=== PATIENT | female | born 1960 | race Caucasian/White ===

== ENCOUNTER 2021-12-08 15:11 | Observation (INO) ==
[2021-12-08 15:41] LABS: Basophils # 0.1 10*3/uL (0.0-0.2); Basophils % 0.8 % (0.0-0.8); Eosinophils # 0.1 10*3/uL (0.0-0.87); Eosinophils % 1.3 % (0.00-10.9); Hematocrit 37.6 VOL% (35.7-47.0); Hemoglobin 12.2 GM/DL (12.0-16.0); Immature Granulocytes % 0.4 %; Immature Granulocytes Absolute 0.05 #; Lymphocytes # 2.3 10*3/uL (1.4-4.0); Lymphocytes % 20.6 % (21.3-54.2); Mean Corpuscular HGB Conc 32.4 GM/DL (32-36); Mean Corpuscular Volume 90.4 FL (87-102); Mean Platelet Volume 10.8 FL (9.6-12.0); Monocytes # 0.6 10*3/uL (0.11-0.8); Monocytes % 5.2 % (1.7-12.7); Neutrophils % 71.7 % (38.7-73.9); Platelet Count 282 T/CUMM (130-400); Red Blood Count 4.16 MC/CUMM (3.8-5.5); Red Cell Distribution Width 15.9 % (9.3-17.3); White Blood Count 11.1 T/CUMM (4-12)
[2021-12-08 16:11] LABS: Alanine Aminotransferase 31 U/L (13-56); Albumin 4.1 G/DL (3.4-5.0); Alkaline Phosphatase 129 U/L (45-117); Aspartate Amino Transferase 26 U/L (0-37); Bilirubin,Total < 0.39 MG/DL (0.20-1.00); Blood Urea Nitrogen 13 MG/DL (7-18); Calcium 9.2 MG/DL (8.5-10.1); Carbon Dioxide 23 MMOL/L (21-32); Chloride 111 MMOL/L (98-107); Glucose 129 MG/DL (74-106); Osmolality,Calculated 280.4 MOS/KG (273-304); Potassium 3.8 MMOL/L (3.5-5.1); Sodium 140 MMOL/L (136-145); Total Protein 7.2 G/DL (6.4-8.2)
[2021-12-08] MEDS ORDERED: methylPREDNISolone SOD SUC 125 MG/2 ML VIAL IV STA (16:35)
[2021-12-08] MEDS ORDERED: ALBUTEROL/IPRATROPIUM 3 ML NEB RESP TX STA (16:35)
[2021-12-08] MEDS ORDERED: KETOROLAC 30 MG/1 ML VIAL IV STA ×2 (16:40→21:44)
[2021-12-08] MEDS ORDERED: ALBUTEROL 2.5 MG/3 ML NEB RESP TX STA (20:24)
[2021-12-08] MEDS ORDERED: guaiFENesin/CODEINE 5 ML LIQUID PO PRN (21:44)
[2021-12-08] MEDS ORDERED: PANTOPRAZOLE 40 MG VIAL IV STA (22:04)
[2021-12-08] MEDS: MORPHINE 2 MG/1 ML SYRINGE IV PRN (22:57)
[2021-12-08] MEDS ORDERED: GLUCAGON 1 MG VIAL IM PRN (23:25)
[2021-12-08] MEDS: ALBUTEROL 2.5 MG/3 ML NEB RESP TX SCH (23:30)
[2021-12-08] MEDS ORDERED: NON-FORMULARY MEDICATION (Albuterol Sulfate [Ventolin Hfa] 90 mcg/actuation HFA aerosol in INH PRN (23:39)
[2021-12-08] MEDS ORDERED: DEXTROSE 10% 250 ML BAG IV PRN (23:48)
[2021-12-09] MEDS: ENOXAPARIN 40 MG/0.4 ML SYRINGE SUBCUT SCH ×2 (00:33→08:38)
[2021-12-09] MEDS: SODIUM CHLORIDE 0.45% 1,000 ML IV SCH ×2 (01:01→13:57)
[2021-12-09] MEDS: methylPREDNISolone SOD SUC 125 MG/2 ML VIAL IV SCH ×4 (01:02→17:25)
[2021-12-09 05:48] LABS: Basophils % 0.1 % (0.0-0.8); Hematocrit 33.6 VOL% (35.7-47.0); Hemoglobin 10.7 GM/DL (12.0-16.0); Immature Granulocytes % 0.7 %; Immature Granulocytes Absolute 0.06 #; Lymphocytes # 0.6 10*3/uL (1.4-4.0); Mean Corpuscular HGB Conc 31.8 GM/DL (32-36); Mean Corpuscular Volume 91.3 FL (87-102); Mean Platelet Volume 10.8 FL (9.6-12.0); Monocytes # 0.1 10*3/uL (0.11-0.8); Neutrophils % 91.2 % (38.7-73.9); Platelet Count 252 T/CUMM (130-400); Red Blood Count 3.68 MC/CUMM (3.8-5.5); Red Cell Distribution Width 16.2 % (9.3-17.3); White Blood Count 8.8 T/CUMM (4-12)
[2021-12-09] MEDS: LEVOTHYROXINE 100 MCG TABLET PO SCH (06:07)
[2021-12-09 06:20] LABS: Calcium 8.6 MG/DL (8.5-10.1); Osmolality,Calculated 287.4 MOS/KG (273-304); Thyroid Stimulating Hormone 2.01 uIU/ml (0.358-3.74)
[2021-12-09 06:28] LABS: Band Neutrophils 5 % (0-10); Lymphocytes 6 % (20-55); Platelet Estimate Normal; Total Cells Counted 100
[2021-12-09 06:29] LABS: Anisocytosis 1+; Macrocytosis Slight
[2021-12-09] MEDS: ALBUTEROL 2.5 MG/3 ML NEB RESP TX SCH ×2 (07:30→10:11)
[2021-12-09] MEDS: lisinopriL 20 MG TABLET PO SCH (08:37)
[2021-12-09] MEDS: MONTELUKAST 10 MG TABLET PO SCH (08:37)
[2021-12-09] MEDS: ASPIRIN EC 81 MG TABLET PO SCH (08:37)
[2021-12-09] MEDS: GABAPENTIN 300 MG CAPSULE PO SCH ×4 (08:37→21:19)
[2021-12-09] MEDS: FLUTICASONE 50 MCG NASAL SPRAY 16 GM BOTTLE BOTH NARES SCH (08:38)
[2021-12-09] MEDS: clonazePAM 0.5 MG TABLET PO SCH ×4 (08:41→21:19)
[2021-12-09] MEDS ORDERED: amLODIPine 2.5 MG TABLET PO SCH ×2 (09:00→14:00)
[2021-12-09] MEDS ORDERED: PANTOPRAZOLE 40 MG VIAL IV SCH (09:00)
[2021-12-09] MEDS ORDERED: FAMOTIDINE 20 MG TABLET PO SCH ×2 (09:00→17:00)
[2021-12-09] MEDS ORDERED: DOCUSATE SODIUM 100 MG CAPSULE PO SCH (09:00)
[2021-12-09] MEDS ORDERED: DEXTROSE 10% 250 ML BAG IV PRN (09:06)
[2021-12-09] MEDS: guaiFENesin/DM ER 600-30 MG TABLET PO SCH ×2 (10:04→21:19)
[2021-12-09] MEDS: MORPHINE 2 MG/1 ML SYRINGE IV PRN ×2 (10:09→17:49)
[2021-12-09] MEDS: ALBUTEROL/IPRATROPIUM 3 ML NEB RESP TX SCH ×4 (11:07→23:05)
[2021-12-09] MEDS: INSULIN LISPRO 100 UNIT/ML SUBCUT SCH ×3 (12:30→21:18)
[2021-12-09] MEDS: ACETAMINOPHEN 325 MG TABLET PO PRN (13:56)
[2021-12-09] MEDS: ONDANSETRON 4 MG/2 ML VIAL IV PRN (14:06)
[2021-12-09] MEDS: DORNASE ALFA 2.5 MG/2.5 ML VIAL RESP TX SCH ×2 (15:09→19:23)
[2021-12-09] MEDS ORDERED: KETOROLAC 15 MG/1 ML VIAL IM ONE (17:33)
[2021-12-09] MEDS ORDERED: KETOROLAC 15 MG/1 ML VIAL IV ONE (17:35)
[2021-12-09] MEDS: SENNA 8.6 MG TABLET PO SCH (21:19)
[2021-12-10] MEDS: methylPREDNISolone SOD SUC 125 MG/2 ML VIAL IV SCH ×2 (00:42→06:11)
[2021-12-10] MEDS: ONDANSETRON 4 MG/2 ML VIAL IV PRN ×2 (00:43→08:49)
[2021-12-10] MEDS: ALBUTEROL/IPRATROPIUM 3 ML NEB RESP TX SCH ×3 (04:08→10:50)
[2021-12-10 05:37] LABS: Risk Ratio 3.6; VLDL Cholesterol 21.8 MG/DL
[2021-12-10] MEDS: DORNASE ALFA 2.5 MG/2.5 ML VIAL RESP TX SCH (06:52)
[2021-12-10] MEDS: LEVOTHYROXINE 100 MCG TABLET PO SCH (07:09)
[2021-12-10 07:38] LABS: Basophils % 0.1 % (0.0-0.8); Hematocrit 32.7 VOL% (35.7-47.0); Hemoglobin 10.4 GM/DL (12.0-16.0); Immature Granulocytes % 0.9 %; Immature Granulocytes Absolute 0.14 #; Lymphocytes # 0.9 10*3/uL (1.4-4.0); Lymphocytes % 6.1 % (21.3-54.2); Mean Corpuscular HGB Conc 31.8 GM/DL (32-36); Mean Corpuscular Volume 92.6 FL (87-102); Mean Platelet Volume 11.5 FL (9.6-12.0); Monocytes # 0.3 10*3/uL (0.11-0.8); Monocytes % 1.9 % (1.7-12.7); Platelet Count 254 T/CUMM (130-400); Red Blood Count 3.53 MC/CUMM (3.8-5.5); Red Cell Distribution Width 16.6 % (9.3-17.3); White Blood Count 15.3 T/CUMM (4-12)
[2021-12-10 07:49] LABS: Potassium 4.6 MMOL/L (3.5-5.1)
[2021-12-10] MEDS: INSULIN LISPRO 100 UNIT/ML SUBCUT SCH (08:04)
[2021-12-10 08:20] VITALS: BP 129/57
[2021-12-10 08:26] LABS: Anisocytosis 1+; Band Neutrophils 3 % (0-10); Lymphocytes 4 % (20-55); Platelet Estimate Normal; Total Cells Counted 100
[2021-12-10] MEDS: ASPIRIN EC 81 MG TABLET PO SCH (08:37)
[2021-12-10] MEDS: MONTELUKAST 10 MG TABLET PO SCH ×2 (08:37→08:43)
[2021-12-10] MEDS: guaiFENesin/DM ER 600-30 MG TABLET PO SCH (08:37)
[2021-12-10] MEDS: clonazePAM 0.5 MG TABLET PO SCH (08:38)
[2021-12-10] MEDS: ENOXAPARIN 40 MG/0.4 ML SYRINGE SUBCUT SCH (08:39)
[2021-12-10] MEDS: SENNA 8.6 MG TABLET PO SCH (08:42)
[2021-12-10] MEDS: lisinopriL 20 MG TABLET PO SCH (08:42)
[2021-12-10] MEDS: FLUTICASONE 50 MCG NASAL SPRAY 16 GM BOTTLE BOTH NARES SCH (08:52)
[2021-12-10] MEDS: ACETAMINOPHEN 325 MG TABLET PO PRN (08:52)
[2021-12-10] MEDS ORDERED: LEVOTHYROXINE 100 MCG TABLET PO SCH (09:00)
[2021-12-10] MEDS ORDERED: GABAPENTIN 600 MG TABLET PO SCH ×2 (09:00→21:00)
[2021-12-10] MEDS ORDERED: LEVOFLOXACIN 750 MG TABLET PO ONE (09:14)
[2021-12-10] MEDS: MORPHINE 2 MG/1 ML SYRINGE IV PRN (10:09)
[2021-12-10] MEDS ORDERED: GABAPENTIN 300 MG CAPSULE PO SCH (12:00)
[2021-12-10] MEDS ORDERED: ATORVASTATIN 20 MG TABLET PO SCH (21:00)
== END 2021-12-10 11:33 | disposition home or self-care (01) ==
LOC: N.ED 15:11 → N.EDINP 21:43 → INTOOBSV 21:43 → N.EDINP 12-09 00:02 → N.TELES 12-09 00:29
PROVIDERS: ADMIT Internal Medicine; ATTEND Internal Medicine

== ENCOUNTER 2022-01-09 20:53 | Inpatient (IN) ==
[2022-01-09 21:22] LABS: Basophils # 0.1 10*3/uL (0.0-0.2); Eosinophils # 0.3 10*3/uL (0.0-0.87); Eosinophils % 3.1 % (0.00-10.9); Hematocrit 34.3 VOL% (35.7-47.0); Hemoglobin 10.9 GM/DL (12.0-16.0); Immature Granulocytes % 0.4 %; Immature Granulocytes Absolute 0.04 #; Lymphocytes # 2.5 10*3/uL (1.4-4.0); Lymphocytes % 26.4 % (21.3-54.2); Mean Corpuscular HGB Conc 31.8 GM/DL (32-36); Mean Corpuscular Volume 93.2 FL (87-102); Mean Platelet Volume 10.5 FL (9.6-12.0); Monocytes # 0.6 10*3/uL (0.11-0.8); Monocytes % 5.9 % (1.7-12.7); Neutrophils % 63.2 % (38.7-73.9); Platelet Count 241 T/CUMM (130-400); Red Blood Count 3.68 MC/CUMM (3.8-5.5); Red Cell Distribution Width 16.9 % (9.3-17.3); White Blood Count 9.6 T/CUMM (4-12)
[2022-01-09 21:33] LABS: INR 0.9; Partial Thromboplastin Time 25.8 SECS (23.7-32.9)
[2022-01-09] MEDS ORDERED: MORPHINE 2 MG/1 ML SYRINGE IV STA (21:38)
[2022-01-09] MEDS ORDERED: methylPREDNISolone SOD SUC 125 MG/2 ML VIAL IV STA (21:38)
[2022-01-09] MEDS ORDERED: ALBUTEROL/IPRATROPIUM 3 ML NEB RESP TX STA (21:38)
[2022-01-09] MEDS ORDERED: ONDANSETRON 4 MG/2 ML VIAL IV ONE (21:38)
[2022-01-09 21:48] LABS: Alanine Aminotransferase 23 U/L (13-56); Albumin 3.7 G/DL (3.4-5.0); Alkaline Phosphatase 116 U/L (45-117); Aspartate Amino Transferase 26 U/L (0-37); Bilirubin,Total < 0.39 MG/DL (0.20-1.00); Blood Urea Nitrogen 11 MG/DL (7-18); Calcium 8.9 MG/DL (8.5-10.1); Carbon Dioxide 25 MMOL/L (21-32); Chloride 111 MMOL/L (98-107); Glucose 122 MG/DL (74-106); Osmolality,Calculated 280.3 MOS/KG (273-304); Potassium 3.6 MMOL/L (3.5-5.1); Sodium 141 MMOL/L (136-145); Total Protein 6.4 G/DL (6.4-8.2)
[2022-01-09] MEDS ORDERED: NITROGLYCERIN 2% OINT 1 INCH/GM PACK TOP ONE (23:30)
[2022-01-09] MEDS ORDERED: NITROGLYCERIN 2% OINT 1 INCH/GM PACK TOP STA (23:31)
[2022-01-10] MEDS ORDERED: KETOROLAC 30 MG/1 ML VIAL IV STA (00:12)
[2022-01-10] MEDS ORDERED: KETOROLAC 30 MG/1 ML VIAL ONE (00:12)
[2022-01-10] MEDS ORDERED: ACETAMINOPHEN 325 MG TABLET PO PRN (00:15)
[2022-01-10] MEDS ORDERED: diphenhydrAMINE CAP 25 MG CAPSULE PO PRN (00:15)
[2022-01-10] MEDS ORDERED: guaiFENesin/DM ER 600-30 MG TABLET PO PRN (00:15)
[2022-01-10] MEDS ORDERED: GLUCAGON 1 MG VIAL IM PRN (00:15)
[2022-01-10] MEDS ORDERED: ZALEPLON 5 MG CAPSULE PO PRN (00:15)
[2022-01-10] MEDS ORDERED: DEXTROSE 10% 250 ML BAG IV PRN (00:31)
[2022-01-10] MEDS: ALBUTEROL/IPRATROPIUM 3 ML NEB RESP TX SCH ×4 (01:15→19:24)
[2022-01-10] MEDS: NICOTINE 21 MG/24 HR PATCH TRANSDERM PRN (01:35)
[2022-01-10] MEDS: methylPREDNISolone SOD SUC 125 MG/2 ML VIAL IV SCH ×4 (04:20→22:10)
[2022-01-10 05:57] LABS: Basophils % 0.6 % (0.0-0.8); Eosinophils % 0.2 % (0.00-10.9); Hematocrit 33.7 VOL% (35.7-47.0); Hemoglobin 10.7 GM/DL (12.0-16.0); Immature Granulocytes % 0.3 %; Immature Granulocytes Absolute 0.02 #; Lymphocytes # 0.5 10*3/uL (1.4-4.0); Lymphocytes % 7.2 % (21.3-54.2); Mean Corpuscular HGB Conc 31.8 GM/DL (32-36); Mean Corpuscular Volume 93.6 FL (87-102); Monocytes # 0.1 10*3/uL (0.11-0.8); Monocytes % 0.8 % (1.7-12.7); Neutrophils % 90.9 % (38.7-73.9); Platelet Count 228 T/CUMM (130-400); Red Cell Distribution Width 16.9 % (9.3-17.3); White Blood Count 6.7 T/CUMM (4-12)
[2022-01-10 06:17] LABS: Calcium 9.4 MG/DL (8.5-10.1); Osmolality,Calculated 283.4 MOS/KG (273-304); Potassium 4.6 MMOL/L (3.5-5.1)
[2022-01-10 06:24] LABS: Eosinophils 2 % (0-10); Lymphocytes 9 % (20-55); Platelet Estimate Adequate; Total Cells Counted 100
[2022-01-10] MEDS: ARFORMOTEROL 15 MCG/2 ML NEB RESP TX SCH ×2 (07:05→19:24)
[2022-01-10] MEDS: BUDESONIDE 0.5 MG/2 ML NEB RESP TX SCH ×2 (07:05→19:24)
[2022-01-10] MEDS: MONTELUKAST 10 MG TABLET PO SCH (09:12)
[2022-01-10] MEDS: BISACODYL 5 MG TABLET PO SCH (09:12)
[2022-01-10] MEDS: ASPIRIN EC 81 MG TABLET PO SCH (09:13)
[2022-01-10] MEDS: PANTOPRAZOLE 40 MG TABLET PO SCH (09:13)
[2022-01-10] MEDS ORDERED: clonazePAM 0.5 MG TABLET PO PRN (09:15)
[2022-01-10] MEDS: lisinopriL 20 MG TABLET PO SCH (09:25)
[2022-01-10] MEDS: amLODIPine 2.5 MG TABLET PO SCH (09:25)
[2022-01-10] MEDS: FUROSEMIDE 20 MG TABLET PO SCH (09:25)
[2022-01-10] MEDS: ONDANSETRON 4 MG/2 ML VIAL IV PRN (10:00)
[2022-01-10] MEDS: GABAPENTIN 300 MG CAPSULE PO SCH (11:45)
[2022-01-10] MEDS: LEVOTHYROXINE 100 MCG TABLET PO SCH (11:45)
[2022-01-10] MEDS: (Fluticasone-Umeclidin-Vilanter [Trelegy Ellipta] 100-62.5-25 mcg INH SCH (12:43)
[2022-01-10] MEDS: ATORVASTATIN 20 MG TABLET PO SCH (20:30)
[2022-01-10] MEDS: GABAPENTIN 600 MG TABLET PO SCH (20:30)
[2022-01-10] MEDS: MORPHINE 2 MG/1 ML SYRINGE IV PRN (20:31)
[2022-01-11] MEDS: ALBUTEROL/IPRATROPIUM 3 ML NEB RESP TX SCH ×5 (00:18→19:00)
[2022-01-11] MEDS: NICOTINE 21 MG/24 HR PATCH TRANSDERM PRN (01:12)
[2022-01-11] MEDS: MORPHINE 2 MG/1 ML SYRINGE IV PRN ×4 (01:13→22:49)
[2022-01-11] MEDS: methylPREDNISolone SOD SUC 125 MG/2 ML VIAL IV SCH ×3 (04:53→21:26)
[2022-01-11] MEDS: LEVOTHYROXINE 100 MCG TABLET PO SCH (05:52)
[2022-01-11 05:54] LABS: Basophils % 0.1 % (0.0-0.8); Hematocrit 33.3 VOL% (35.7-47.0); Hemoglobin 10.5 GM/DL (12.0-16.0); Immature Granulocytes Absolute 0.18 #; Lymphocytes # 0.8 10*3/uL (1.4-4.0); Lymphocytes % 4.4 % (21.3-54.2); Mean Corpuscular HGB Conc 31.5 GM/DL (32-36); Mean Corpuscular Volume 93.8 FL (87-102); Mean Platelet Volume 11.2 FL (9.6-12.0); Monocytes # 0.3 10*3/uL (0.11-0.8); Monocytes % 1.6 % (1.7-12.7); Neutrophils % 92.9 % (38.7-73.9); Platelet Count 240 T/CUMM (130-400); Red Blood Count 3.55 MC/CUMM (3.8-5.5); Red Cell Distribution Width 17.2 % (9.3-17.3); White Blood Count 18.4 T/CUMM (4-12)
[2022-01-11 06:06] LABS: Calcium 8.8 MG/DL (8.5-10.1); Osmolality,Calculated 286.3 MOS/KG (273-304); Potassium 4.3 MMOL/L (3.5-5.1)
[2022-01-11 06:21] LABS: Band Neutrophils 3 % (0-10); Lymphocytes 6 % (20-55); Polychromasia Slight; Total Cells Counted 100
[2022-01-11 06:22] LABS: Macrocytosis 1+; Platelet Estimate Normal
[2022-01-11] MEDS: BUDESONIDE 0.5 MG/2 ML NEB RESP TX SCH ×2 (07:19→19:00)
[2022-01-11] MEDS: ARFORMOTEROL 15 MCG/2 ML NEB RESP TX SCH ×2 (07:19→19:00)
[2022-01-11] MEDS: lisinopriL 20 MG TABLET PO SCH (09:40)
[2022-01-11] MEDS: amLODIPine 2.5 MG TABLET PO SCH (09:40)
[2022-01-11] MEDS: ASPIRIN EC 81 MG TABLET PO SCH (09:42)
[2022-01-11] MEDS: MONTELUKAST 10 MG TABLET PO SCH ×2 (09:42→21:27)
[2022-01-11] MEDS: BISACODYL 5 MG TABLET PO SCH (09:43)
[2022-01-11] MEDS: PANTOPRAZOLE 40 MG TABLET PO SCH (09:43)
[2022-01-11] MEDS: (Fluticasone-Umeclidin-Vilanter [Trelegy Ellipta] 100-62.5-25 mcg INH SCH (09:53)
[2022-01-11] MEDS: ALBUTEROL 2.5 MG/3 ML NEB RESP TX PRN ×2 (10:53→15:35)
[2022-01-11] MEDS ORDERED: AMINOPHYLLINE 250 MG in SODIUM CHLORIDE 0.9% 100 ML IV ONE (11:00)
[2022-01-11] MEDS: LEVOFLOXACIN INJ 500 MG/100 ML PREMIX IV SCH (11:18)
[2022-01-11] MEDS: GABAPENTIN 300 MG CAPSULE PO SCH (11:54)
[2022-01-11] MEDS: ALBUTEROL 2 MG TABLET PO SCH ×2 (14:54→21:26)
[2022-01-11] MEDS: clonazePAM 0.5 MG TABLET PO SCH ×2 (14:54→21:27)
[2022-01-11] MEDS ORDERED: AMINOPHYLLINE 500 MG in SODIUM CHLORIDE 0.9% 480 ML IV SCH (15:00)
[2022-01-11] MEDS: ONDANSETRON 4 MG/2 ML VIAL IV PRN (15:22)
[2022-01-11] MEDS ORDERED: VITAMIN D2 1.25 MG PO ONE (21:00)
[2022-01-11] MEDS: GABAPENTIN 600 MG TABLET PO SCH (21:27)
[2022-01-11] MEDS: ATORVASTATIN 20 MG TABLET PO SCH (21:28)
[2022-01-11] MEDS: SENNA 8.6 MG TABLET PO SCH (23:59)
[2022-01-12 05:42] LABS: Basophils % 0.1 % (0.0-0.8); Hematocrit 32.4 VOL% (35.7-47.0); Hemoglobin 10.1 GM/DL (12.0-16.0); Immature Granulocytes % 1.1 %; Immature Granulocytes Absolute 0.19 #; Lymphocytes # 0.6 10*3/uL (1.4-4.0); Lymphocytes % 3.2 % (21.3-54.2); Mean Corpuscular HGB Conc 31.2 GM/DL (32-36); Mean Corpuscular Volume 95.6 FL (87-102); Mean Platelet Volume 10.9 FL (9.6-12.0); Monocytes # 0.3 10*3/uL (0.11-0.8); Monocytes % 1.7 % (1.7-12.7); Neutrophils % 93.9 % (38.7-73.9); Platelet Count 260 T/CUMM (130-400); Red Blood Count 3.39 MC/CUMM (3.8-5.5); White Blood Count 17.4 T/CUMM (4-12)
[2022-01-12] MEDS: methylPREDNISolone SOD SUC 125 MG/2 ML VIAL IV SCH ×3 (05:50→21:42)
[2022-01-12] MEDS: LEVOTHYROXINE 100 MCG TABLET PO SCH (05:50)
[2022-01-12] MEDS: ALBUTEROL 2 MG TABLET PO SCH ×3 (05:50→22:30)
[2022-01-12 06:00] LABS: Osmolality,Calculated 285.3 MOS/KG (273-304)
[2022-01-12 06:06] LABS: Lymphocytes 5 % (20-55); Platelet Estimate Adequate; Total Cells Counted 100
[2022-01-12] MEDS: NICOTINE 21 MG/24 HR PATCH TRANSDERM PRN (06:12)
[2022-01-12] MEDS: MORPHINE 2 MG/1 ML SYRINGE IV PRN ×3 (06:13→22:30)
[2022-01-12] MEDS: BUDESONIDE 0.5 MG/2 ML NEB RESP TX SCH ×2 (07:25→19:29)
[2022-01-12] MEDS: ALBUTEROL/IPRATROPIUM 3 ML NEB RESP TX SCH ×4 (07:25→19:21)
[2022-01-12] MEDS: ARFORMOTEROL 15 MCG/2 ML NEB RESP TX SCH ×2 (07:25→19:29)
[2022-01-12] MEDS ORDERED: SENNA 8.6 MG TABLET PO SCH (09:00)
[2022-01-12] MEDS ORDERED: SODIUM CHLORIDE 0.9% 1,000 ML IV SCH (09:00)
[2022-01-12] MEDS: ONDANSETRON 4 MG/2 ML VIAL IV PRN ×2 (09:43→22:30)
[2022-01-12] MEDS: lisinopriL 20 MG TABLET PO SCH (09:44)
[2022-01-12] MEDS: FUROSEMIDE 20 MG TABLET PO SCH (09:45)
[2022-01-12] MEDS: amLODIPine 2.5 MG TABLET PO SCH (09:45)
[2022-01-12] MEDS: clonazePAM 0.5 MG TABLET PO SCH ×3 (09:46→21:43)
[2022-01-12] MEDS: PANTOPRAZOLE 40 MG TABLET PO SCH (09:46)
[2022-01-12] MEDS: (Fluticasone-Umeclidin-Vilanter [Trelegy Ellipta] 100-62.5-25 mcg INH SCH (09:47)
[2022-01-12] MEDS: ASPIRIN EC 81 MG TABLET PO SCH (09:52)
[2022-01-12] MEDS: MONTELUKAST 10 MG TABLET PO SCH ×2 (09:53→21:43)
[2022-01-12] MEDS: LEVOFLOXACIN INJ 500 MG/100 ML PREMIX IV SCH (10:11)
[2022-01-12] MEDS ORDERED: HEPARIN/NACL 0.9% 2 UNITS/ML 3,000 UNIT/1,500 ML BAG IV ONE (11:22)
[2022-01-12] MEDS: GABAPENTIN 300 MG CAPSULE PO SCH (12:40)
[2022-01-12] MEDS ORDERED: ALBUTEROL 2 MG TABLET PO SCH (14:00)
[2022-01-12] MEDS ORDERED: MIDAZOLAM 2 MG/2 ML VIAL ONE ×2 (15:09→15:23)
[2022-01-12] MEDS ORDERED: fentaNYL 100 MCG/2 ML VIAL ONE (15:09)
[2022-01-12] MEDS: ATORVASTATIN 20 MG TABLET PO SCH (21:43)
[2022-01-12] MEDS: GABAPENTIN 600 MG TABLET PO SCH (21:43)
[2022-01-12] MEDS: SENNA 8.6 MG TABLET PO SCH (21:44)
[2022-01-12] MEDS: ALBUTEROL 2.5 MG/3 ML NEB RESP TX PRN (22:31)
[2022-01-13] MEDS: ALBUTEROL/IPRATROPIUM 3 ML NEB RESP TX SCH ×2 (00:03→07:09)
[2022-01-13] MEDS: methylPREDNISolone SOD SUC 125 MG/2 ML VIAL IV SCH (04:50)
[2022-01-13] MEDS: MORPHINE 2 MG/1 ML SYRINGE IV PRN ×2 (04:50→09:50)
[2022-01-13] MEDS: ALBUTEROL 2 MG TABLET PO SCH ×2 (05:32→13:05)
[2022-01-13] MEDS: LEVOTHYROXINE 100 MCG TABLET PO SCH (05:32)
[2022-01-13 06:15] LABS: Basophils % 0.1 % (0.0-0.8); Hematocrit 33.2 VOL% (35.7-47.0); Hemoglobin 10.5 GM/DL (12.0-16.0); Immature Granulocytes % 1.7 %; Immature Granulocytes Absolute 0.23 #; Lymphocytes # 0.6 10*3/uL (1.4-4.0); Lymphocytes % 4.1 % (21.3-54.2); Mean Corpuscular HGB Conc 31.6 GM/DL (32-36); Mean Corpuscular Volume 94.1 FL (87-102); Mean Platelet Volume 10.5 FL (9.6-12.0); Monocytes # 0.4 10*3/uL (0.11-0.8); Monocytes % 2.7 % (1.7-12.7); Neutrophils % 91.4 % (38.7-73.9); Platelet Count 253 T/CUMM (130-400); Red Blood Count 3.53 MC/CUMM (3.8-5.5); Red Cell Distribution Width 17.9 % (9.3-17.3); White Blood Count 13.5 T/CUMM (4-12)
[2022-01-13 06:23] LABS: % Iron Saturation 15.5 % (18-50); Calcium 8.7 MG/DL (8.5-10.1); Osmolality,Calculated 285.3 MOS/KG (273-304); Potassium 4.6 MMOL/L (3.5-5.1)
[2022-01-13 06:35] LABS: Lymphocytes 8 % (20-55); Total Cells Counted 100
[2022-01-13 06:36] LABS: Platelet Estimate Normal
[2022-01-13] MEDS: BUDESONIDE 0.5 MG/2 ML NEB RESP TX SCH (07:09)
[2022-01-13] MEDS: ARFORMOTEROL 15 MCG/2 ML NEB RESP TX SCH (07:09)
[2022-01-13] MEDS: amLODIPine 2.5 MG TABLET PO SCH (08:25)
[2022-01-13] MEDS: MONTELUKAST 10 MG TABLET PO SCH (08:25)
[2022-01-13] MEDS: lisinopriL 20 MG TABLET PO SCH (08:25)
[2022-01-13] MEDS: (Fluticasone-Umeclidin-Vilanter [Trelegy Ellipta] 100-62.5-25 mcg INH SCH (08:26)
[2022-01-13] MEDS: clonazePAM 0.5 MG TABLET PO SCH (08:26)
[2022-01-13] MEDS: ASPIRIN EC 81 MG TABLET PO SCH (08:26)
[2022-01-13] MEDS: PANTOPRAZOLE 40 MG TABLET PO SCH (08:27)
[2022-01-13] MEDS: NICOTINE 21 MG/24 HR PATCH TRANSDERM PRN (08:27)
[2022-01-13 09:16] LABS: Folate 9.02 NG/ML (5.38-24.0)
[2022-01-13 10:49] VITALS: BP 156/62
[2022-01-13] MEDS: LEVOFLOXACIN INJ 500 MG/100 ML PREMIX IV SCH (11:22)
[2022-01-13] MEDS: GABAPENTIN 300 MG CAPSULE PO SCH (11:23)
[2022-01-13] MEDS ORDERED: methylPREDNISolone SOD SUC 40 MG/1 ML VIAL IM SCH (21:00)
[2022-01-14] MEDS ORDERED: ISOSORBIDE MONONITRATE 30 MG TABLET PO SCH (09:00)
== END 2022-01-13 13:20 | disposition home or self-care (01) | DRG 140 ==
LOC: EDUNIT# → EDBD → N.ED 20:53 → N.EDINP 20:53 → N.TELES 01-10 00:37 → SUATTDRO 01-11 09:36
PROVIDERS: ADMIT Internal Medicine; ATTEND Family Medicine
PROC: CLCCHCL (ICD-10-PCS; 2022-01-12 13:45)

== ENCOUNTER 2022-05-21 10:11 | Inpatient (IN) ==
[2022-05-21] MEDS ORDERED: ALBUTEROL NEB SOLN 5 MG/ML 20 ML/BOTTLE CONT NEB STA (10:28)
[2022-05-21] MEDS ORDERED: methylPREDNISolone SOD SUC 125 MG/2 ML VIAL IV STA (10:28)
[2022-05-21 10:32] LABS: Basophils % 0.3 % (0.0-0.8); Eosinophils % 0.1 % (0.00-10.9); Hemoglobin 10.2 GM/DL (12.0-16.0); Immature Granulocytes Absolute 0.11 #; Lymphocytes # 0.4 10*3/uL (1.4-4.0); Lymphocytes % 3.9 % (21.3-54.2); Mean Corpuscular HGB Conc 30.9 GM/DL (32-36); Mean Platelet Volume 10.2 FL (9.6-12.0); Monocytes # 0.7 10*3/uL (0.11-0.8); Monocytes % 6.1 % (1.7-12.7); Neutrophils % 88.6 % (38.7-73.9); Platelet Count 258 T/CUMM (130-400); Red Blood Count 3.75 MC/CUMM (3.8-5.5); Red Cell Distribution Width 16.3 % (9.3-17.3); White Blood Count 11.4 T/CUMM (4-12)
[2022-05-21] MEDS ORDERED: ALBUTEROL 2.5 MG/3 ML NEB RESP TX ONE ×3 (10:33→10:35)
[2022-05-21 10:46] LABS: Arterial Base Excess iSTAT 2 MMOL/L (-2.5-2.5); Arterial Bicarbonate iSTAT 25.6 MMOL/L (20-26); Arterial O2 Saturation iSTAT 96 % (95-100); Arterial PCO2 iSTAT 36 MM HG (35-48); Arterial PO2 iSTAT 76 MM HG (80-95); Arterial Total CO2 iSTAT 27 MMO/L (23-27); Arterial pH iSTAT 7.463 (7.35-7.45)
[2022-05-21 10:51] LABS: Lymphocytes 3 % (20-55); Total Cells Counted 100
[2022-05-21 10:52] LABS: Hypochromia Slight; Microcytosis Slight; Platelet Estimate Adequate
[2022-05-21 10:56] LABS: Alanine Aminotransferase 34 U/L (13-56); Albumin 3.7 G/DL (3.4-5.0); Alkaline Phosphatase 101 U/L (45-117); Aspartate Amino Transferase 25 U/L (0-37); Bilirubin,Total < 0.39 MG/DL (0.20-1.00); Blood Urea Nitrogen 13 MG/DL (7-18); Calcium 8.9 MG/DL (8.5-10.1); Carbon Dioxide 26 MMOL/L (21-32); Chloride 105 MMOL/L (98-107); Glucose 97 MG/DL (74-106); Osmolality,Calculated 274.7 MOS/KG (273-304); Potassium 4.1 MMOL/L (3.5-5.1); Sodium 138 MMOL/L (136-145); Total Protein 6.6 G/DL (6.4-8.2)
[2022-05-21] MEDS ORDERED: DOCUSATE SODIUM 100 MG CAPSULE PO PRN (11:58)
[2022-05-21] MEDS ORDERED: hydrALAZINE 20 MG/1 ML VIAL IV PRN (11:58)
[2022-05-21] MEDS ORDERED: ACETAMINOPHEN 325 MG TABLET PO PRN (11:58)
[2022-05-21] MEDS ORDERED: CALCIUM CARBONATE CHEW 500 MG TABLET PO PRN (11:58)
[2022-05-21] MEDS ORDERED: SIMETHICONE CHEW 125 MG TABLET PO PRN (11:58)
[2022-05-21] MEDS ORDERED: MEROPENEM 1,000 MG in SODIUM CHLORIDE 0.9% 100 ML IV ONE (12:30)
[2022-05-21] MEDS ORDERED: NICOTINE 21 MG/24 HR PATCH TRANSDERM SCH ×2 (12:50→14:30)
[2022-05-21] MEDS ORDERED: ALBUTEROL/IPRATROPIUM 3 ML NEB RESP TX SCH (13:00)
[2022-05-21] MEDS ORDERED: ALBUTEROL 2.5 MG/3 ML NEB RESP TX PRN (14:20)
[2022-05-21] MEDS: ALBUTEROL/IPRATROPIUM 3 ML NEB RESP TX SCH ×3 (14:31→23:56)
[2022-05-21] MEDS: clonazePAM 0.5 MG TABLET PO SCH ×2 (15:46→21:06)
[2022-05-21] MEDS: VANCOMYCIN INJ 1,000 MG in SODIUM CHLORIDE 0.9% 250 ML IV SCH (15:46)
[2022-05-21] MEDS: PANTOPRAZOLE 40 MG TABLET PO SCH (15:55)
[2022-05-21] MEDS: INSULIN LISPRO 100 UNIT/ML SUBCUT SCH ×2 (16:09→21:05)
[2022-05-21] MEDS: GABAPENTIN 300 MG CAPSULE PO SCH ×2 (17:26→21:05)
[2022-05-21] MEDS: methylPREDNISolone SOD SUC 40 MG/1 ML VIAL IV SCH ×2 (17:26→23:22)
[2022-05-21] MEDS: MEROPENEM 500 MG in SODIUM CHLORIDE 0.9% 100 ML IV SCH ×2 (17:27→23:22)
[2022-05-21] MEDS ORDERED: MEROPENEM 2,000 MG in SODIUM CHLORIDE 0.9% 100 ML IV SCH (20:00)
[2022-05-21] MEDS: MONTELUKAST 10 MG TABLET PO SCH (21:05)
[2022-05-21] MEDS: ONDANSETRON 4 MG/2 ML VIAL IV PRN (21:09)
[2022-05-21] MEDS: ENOXAPARIN 40 MG/0.4 ML SYRINGE SUBCUT SCH (21:10)
[2022-05-22] MEDS: ALBUTEROL/IPRATROPIUM 3 ML NEB RESP TX SCH ×4 (03:17→19:46)
[2022-05-22] MEDS: VANCOMYCIN INJ 1,000 MG in SODIUM CHLORIDE 0.9% 250 ML IV SCH ×2 (03:45→17:12)
[2022-05-22] MEDS: methylPREDNISolone SOD SUC 40 MG/1 ML VIAL IV SCH ×4 (05:08→23:26)
[2022-05-22] MEDS: MEROPENEM 500 MG in SODIUM CHLORIDE 0.9% 100 ML IV SCH ×4 (05:09→23:26)
[2022-05-22 05:34] LABS: Basophils % 0.1 % (0.0-0.8); Hematocrit 32.7 VOL% (35.7-47.0); Hemoglobin 10.1 GM/DL (12.0-16.0); Immature Granulocytes % 1.8 %; Immature Granulocytes Absolute 0.15 #; Lymphocytes # 0.4 10*3/uL (1.4-4.0); Mean Corpuscular HGB Conc 30.9 GM/DL (32-36); Mean Corpuscular Volume 90.8 FL (87-102); Mean Platelet Volume 10.7 FL (9.6-12.0); Monocytes # 0.3 10*3/uL (0.11-0.8); Neutrophils % 90.1 % (38.7-73.9); Platelet Count 270 T/CUMM (130-400); Red Cell Distribution Width 16.5 % (9.3-17.3); White Blood Count 8.6 T/CUMM (4-12)
[2022-05-22] MEDS: LEVOTHYROXINE 100 MCG TABLET PO SCH (06:10)
[2022-05-22 06:13] LABS: Risk Ratio 1.99; Thyroid Stimulating Hormone 2.07 uIU/ml (0.358-3.74)
[2022-05-22 06:34] LABS: Calcium 8.6 MG/DL (8.5-10.1); Osmolality,Calculated 284.3 MOS/KG (273-304); Potassium 4.2 MMOL/L (3.5-5.1)
[2022-05-22] MEDS: INSULIN LISPRO 100 UNIT/ML SUBCUT SCH ×4 (08:04→21:00)
[2022-05-22] MEDS: GABAPENTIN 300 MG CAPSULE PO SCH ×4 (08:39→21:02)
[2022-05-22] MEDS: MONTELUKAST 10 MG TABLET PO SCH ×2 (08:39→21:00)
[2022-05-22] MEDS: Fluticasone-Umeclidin-Vilanter [Trelegy Ellipta] 100-62.5-25 mcg INH SCH (08:39)
[2022-05-22] MEDS: clonazePAM 0.5 MG TABLET PO SCH ×3 (08:40→21:00)
[2022-05-22] MEDS: THEOPHYLLINE ER 300 MG TABLET PO SCH (08:41)
[2022-05-22] MEDS: PANTOPRAZOLE 40 MG TABLET PO SCH ×2 (08:41→17:09)
[2022-05-22] MEDS: FAMOTIDINE 20 MG TABLET PO SCH (08:41)
[2022-05-22] MEDS ORDERED: PANTOPRAZOLE 40 MG TABLET PO SCH (09:00)
[2022-05-22] MEDS ORDERED: ASPIRIN EC 81 MG TABLET PO SCH (09:00)
[2022-05-22] MEDS ORDERED: ALBUTEROL/IPRATROPIUM 3 ML NEB RESP TX PRN (09:34)
[2022-05-22] MEDS: DORNASE ALFA 2.5 MG/2.5 ML VIAL RESP TX SCH ×2 (10:45→19:47)
[2022-05-22] MEDS: EPINEPHrine 1 MG/ML VIAL SUBCUT SCH ×2 (11:09→17:10)
[2022-05-22] MEDS: amLODIPine 2.5 MG TABLET PO SCH (11:23)
[2022-05-22] MEDS: ALBUTEROL 2 MG TABLET PO SCH ×2 (13:32→20:59)
[2022-05-22] MEDS: NICOTINE 21 MG/24 HR PATCH TRANSDERM SCH (14:28)
[2022-05-22] MEDS: BUDESONIDE 0.5 MG/2 ML NEB RESP TX SCH (19:46)
[2022-05-22] MEDS: ENOXAPARIN 40 MG/0.4 ML SYRINGE SUBCUT SCH (20:59)
[2022-05-22] MEDS: ZALEPLON 5 MG CAPSULE PO PRN (20:59)
[2022-05-23] MEDS: EPINEPHrine 1 MG/ML VIAL SUBCUT SCH ×3 (01:32→17:30)
[2022-05-23] MEDS: ALBUTEROL/IPRATROPIUM 3 ML NEB RESP TX SCH ×4 (01:33→19:15)
[2022-05-23] MEDS: ZALEPLON 5 MG CAPSULE PO PRN ×2 (01:39→21:06)
[2022-05-23] MEDS: VANCOMYCIN INJ 1,000 MG in SODIUM CHLORIDE 0.9% 250 ML IV SCH ×3 (03:44→23:49)
[2022-05-23] MEDS: methylPREDNISolone SOD SUC 40 MG/1 ML VIAL IV SCH ×4 (05:37→23:48)
[2022-05-23] MEDS: MEROPENEM 500 MG in SODIUM CHLORIDE 0.9% 100 ML IV SCH ×3 (05:37→18:24)
[2022-05-23] MEDS: LEVOTHYROXINE 100 MCG TABLET PO SCH (05:37)
[2022-05-23] MEDS: ALBUTEROL 2 MG TABLET PO SCH (05:37)
[2022-05-23 05:57] LABS: Basophils % 0.1 % (0.0-0.8); Hematocrit 31.1 VOL% (35.7-47.0); Hemoglobin 9.9 GM/DL (12.0-16.0); Immature Granulocytes % 1.3 %; Immature Granulocytes Absolute 0.21 #; Lymphocytes # 0.5 10*3/uL (1.4-4.0); Lymphocytes % 2.9 % (21.3-54.2); Mean Corpuscular HGB Conc 31.8 GM/DL (32-36); Mean Corpuscular Volume 89.4 FL (87-102); Mean Platelet Volume 10.3 FL (9.6-12.0); Monocytes # 0.5 10*3/uL (0.11-0.8); Monocytes % 2.8 % (1.7-12.7); Neutrophils % 92.9 % (38.7-73.9); Platelet Count 269 T/CUMM (130-400); Red Blood Count 3.48 MC/CUMM (3.8-5.5); Red Cell Distribution Width 16.8 % (9.3-17.3)
[2022-05-23 06:21] LABS: Osmolality,Calculated 283.4 MOS/KG (273-304); Potassium 4.2 MMOL/L (3.5-5.1)
[2022-05-23 06:22] LABS: Band Neutrophils 1 % (0-10); Hypochromia Slight; Lymphocytes 2 % (20-55); Microcytosis Slight; Platelet Estimate Adequate; Total Cells Counted 100
[2022-05-23] MEDS: BUDESONIDE 0.5 MG/2 ML NEB RESP TX SCH ×2 (07:36→19:16)
[2022-05-23] MEDS: DORNASE ALFA 2.5 MG/2.5 ML VIAL RESP TX SCH ×2 (07:46→19:29)
[2022-05-23] MEDS: INSULIN LISPRO 100 UNIT/ML SUBCUT SCH ×4 (08:29→20:06)
[2022-05-23] MEDS: clonazePAM 0.5 MG TABLET PO SCH ×3 (09:24→20:56)
[2022-05-23] MEDS: FAMOTIDINE 20 MG TABLET PO SCH (09:25)
[2022-05-23] MEDS: Fluticasone-Umeclidin-Vilanter [Trelegy Ellipta] 100-62.5-25 mcg INH SCH (09:25)
[2022-05-23] MEDS: MONTELUKAST 10 MG TABLET PO SCH ×2 (09:26→20:56)
[2022-05-23] MEDS: FUROSEMIDE 20 MG TABLET PO SCH (09:26)
[2022-05-23] MEDS: POTASSIUM CHLORIDE 10 MEQ TABLET PO SCH (09:26)
[2022-05-23] MEDS: THEOPHYLLINE ER 300 MG TABLET PO SCH (09:27)
[2022-05-23] MEDS: PANTOPRAZOLE 40 MG TABLET PO SCH ×2 (09:27→17:00)
[2022-05-23] MEDS: NICOTINE 21 MG/24 HR PATCH TRANSDERM SCH (09:28)
[2022-05-23] MEDS: GABAPENTIN 300 MG CAPSULE PO SCH ×4 (09:39→20:56)
[2022-05-23] MEDS: ACETAMINOPHEN 325 MG TABLET PO SCH ×2 (12:11→23:42)
[2022-05-23] MEDS: amLODIPine 2.5 MG TABLET PO SCH (12:12)
[2022-05-23] MEDS: ONDANSETRON 4 MG/2 ML VIAL IV PRN (12:35)
[2022-05-23] MEDS: FLUCONAZOLE 100 MG TABLET PO SCH (12:35)
[2022-05-23] MEDS: NYSTATIN 500,000 UNIT/5 ML UDCUP SWISH/SWAL SCH ×3 (13:21→20:56)
[2022-05-23] MEDS: LIDOCAINE 5% PATCH TRANSDERM SCH (16:58)
[2022-05-23] MEDS: ENOXAPARIN 40 MG/0.4 ML SYRINGE SUBCUT SCH (20:57)
[2022-05-24] MEDS: MEROPENEM 500 MG in SODIUM CHLORIDE 0.9% 100 ML IV SCH ×4 (01:01→21:17)
[2022-05-24] MEDS: EPINEPHrine 1 MG/ML VIAL SUBCUT SCH ×3 (04:46→18:21)
[2022-05-24] MEDS: methylPREDNISolone SOD SUC 40 MG/1 ML VIAL IV SCH ×4 (04:47→22:05)
[2022-05-24 05:38] LABS: Basophils % 0.2 % (0.0-0.8); Hematocrit 29.6 VOL% (35.7-47.0); Immature Granulocytes % 2.5 %; Immature Granulocytes Absolute 0.33 #; Lymphocytes # 0.5 10*3/uL (1.4-4.0); Lymphocytes % 3.8 % (21.3-54.2); Mean Corpuscular HGB Conc 30.4 GM/DL (32-36); Mean Corpuscular Volume 89.7 FL (87-102); Mean Platelet Volume 10.6 FL (9.6-12.0); Monocytes # 0.3 10*3/uL (0.11-0.8); Monocytes % 2.5 % (1.7-12.7); Platelet Count 234 T/CUMM (130-400); Red Cell Distribution Width 16.9 % (9.3-17.3)
[2022-05-24] MEDS: LEVOTHYROXINE 100 MCG TABLET PO SCH (05:43)
[2022-05-24 05:55] LABS: Calcium 8.4 MG/DL (8.5-10.1); Osmolality,Calculated 287.1 MOS/KG (273-304)
[2022-05-24 06:06] LABS: Lymphocytes 5 % (20-55); Total Cells Counted 100
[2022-05-24 06:07] LABS: Hypochromia Slight; Microcytosis Slight; Platelet Estimate Adequate
[2022-05-24] MEDS: ALBUTEROL 2 MG TABLET PO SCH ×3 (07:30→14:44)
[2022-05-24] MEDS: BUDESONIDE 0.5 MG/2 ML NEB RESP TX SCH ×2 (07:30→19:16)
[2022-05-24] MEDS: ALBUTEROL/IPRATROPIUM 3 ML NEB RESP TX SCH ×4 (07:30→19:16)
[2022-05-24] MEDS: DORNASE ALFA 2.5 MG/2.5 ML VIAL RESP TX SCH ×2 (07:30→19:29)
[2022-05-24] MEDS: INSULIN LISPRO 100 UNIT/ML SUBCUT SCH ×4 (07:55→21:57)
[2022-05-24] MEDS: clonazePAM 0.5 MG TABLET PO SCH ×3 (08:45→21:17)
[2022-05-24] MEDS: NYSTATIN 500,000 UNIT/5 ML UDCUP SWISH/SWAL SCH ×4 (08:45→21:16)
[2022-05-24] MEDS: GABAPENTIN 300 MG CAPSULE PO SCH ×4 (08:46→21:17)
[2022-05-24] MEDS: FAMOTIDINE 20 MG TABLET PO SCH (08:46)
[2022-05-24] MEDS: THEOPHYLLINE ER 300 MG TABLET PO SCH (08:46)
[2022-05-24] MEDS: MONTELUKAST 10 MG TABLET PO SCH ×2 (08:47→21:17)
[2022-05-24] MEDS: PANTOPRAZOLE 40 MG TABLET PO SCH ×2 (08:47→16:30)
[2022-05-24] MEDS: FLUCONAZOLE 100 MG TABLET PO SCH (08:47)
[2022-05-24] MEDS: VANCOMYCIN INJ 1,000 MG in SODIUM CHLORIDE 0.9% 250 ML IV SCH ×2 (08:47→18:24)
[2022-05-24] MEDS: NICOTINE 21 MG/24 HR PATCH TRANSDERM SCH (08:48)
[2022-05-24] MEDS: Fluticasone-Umeclidin-Vilanter [Trelegy Ellipta] 100-62.5-25 mcg INH SCH (08:48)
[2022-05-24] MEDS: LIDOCAINE 5% PATCH TRANSDERM SCH (08:50)
[2022-05-24] MEDS ORDERED: NITROGLYCERIN SL 0.4 MG TABLET SL PRN (11:31)
[2022-05-24] MEDS: ACETAMINOPHEN 325 MG TABLET PO SCH (11:47)
[2022-05-24] MEDS: amLODIPine 2.5 MG TABLET PO SCH (11:50)
[2022-05-24] MEDS: ONDANSETRON 4 MG/2 ML VIAL IV PRN (18:27)
[2022-05-24] MEDS: ZALEPLON 5 MG CAPSULE PO PRN (21:17)
[2022-05-24] MEDS: ENOXAPARIN 40 MG/0.4 ML SYRINGE SUBCUT SCH (21:18)
[2022-05-25] MEDS: ALBUTEROL/IPRATROPIUM 3 ML NEB RESP TX SCH ×2 (00:02→07:09)
[2022-05-25] MEDS: EPINEPHrine 1 MG/ML VIAL SUBCUT SCH ×2 (03:28→09:54)
[2022-05-25] MEDS: methylPREDNISolone SOD SUC 40 MG/1 ML VIAL IV SCH ×2 (04:00→11:52)
[2022-05-25] MEDS: MEROPENEM 500 MG in SODIUM CHLORIDE 0.9% 100 ML IV SCH ×2 (04:05→08:34)
[2022-05-25] MEDS: LEVOTHYROXINE 100 MCG TABLET PO SCH (06:00)
[2022-05-25] MEDS: DORNASE ALFA 2.5 MG/2.5 ML VIAL RESP TX SCH (07:09)
[2022-05-25] MEDS: BUDESONIDE 0.5 MG/2 ML NEB RESP TX SCH (07:09)
[2022-05-25] MEDS: INSULIN LISPRO 100 UNIT/ML SUBCUT SCH ×2 (08:29→11:38)
[2022-05-25] MEDS: LIDOCAINE 5% PATCH TRANSDERM SCH (08:33)
[2022-05-25] MEDS: NICOTINE 21 MG/24 HR PATCH TRANSDERM SCH (08:35)
[2022-05-25] MEDS: NYSTATIN 500,000 UNIT/5 ML UDCUP SWISH/SWAL SCH (08:36)
[2022-05-25] MEDS: POTASSIUM CHLORIDE 10 MEQ TABLET PO SCH (08:36)
[2022-05-25] MEDS: clonazePAM 0.5 MG TABLET PO SCH (08:36)
[2022-05-25] MEDS: FAMOTIDINE 20 MG TABLET PO SCH (08:36)
[2022-05-25] MEDS: GABAPENTIN 300 MG CAPSULE PO SCH (08:36)
[2022-05-25] MEDS: THEOPHYLLINE ER 300 MG TABLET PO SCH (08:36)
[2022-05-25] MEDS: FLUCONAZOLE 100 MG TABLET PO SCH (08:36)
[2022-05-25] MEDS: FUROSEMIDE 20 MG TABLET PO SCH (08:37)
[2022-05-25] MEDS: PANTOPRAZOLE 40 MG TABLET PO SCH ×2 (08:37→08:53)
[2022-05-25] MEDS: MONTELUKAST 10 MG TABLET PO SCH (08:37)
[2022-05-25 09:02] LABS: Calcium 8.5 MG/DL (8.5-10.1); Osmolality,Calculated 289.8 MOS/KG (273-304); Potassium 4.1 MMOL/L (3.5-5.1)
[2022-05-25] MEDS: VANCOMYCIN INJ 1,000 MG in SODIUM CHLORIDE 0.9% 250 ML IV SCH ×2 (09:56)
[2022-05-25] MEDS: Fluticasone-Umeclidin-Vilanter [Trelegy Ellipta] 100-62.5-25 mcg INH SCH (10:07)
[2022-05-25 11:23] LABS: Basophils % 0.2 % (0.0-0.8); Hematocrit 32.6 VOL% (35.7-47.0); Hemoglobin 9.9 GM/DL (12.0-16.0); Immature Granulocytes % 3.3 %; Immature Granulocytes Absolute 0.39 #; Lymphocytes # 0.6 10*3/uL (1.4-4.0); Lymphocytes % 5.1 % (21.3-54.2); Mean Corpuscular HGB Conc 30.4 GM/DL (32-36); Mean Corpuscular Volume 90.6 FL (87-102); Mean Platelet Volume 11.2 FL (9.6-12.0); Monocytes # 0.4 10*3/uL (0.11-0.8); Monocytes % 3.1 % (1.7-12.7); Neutrophils % 88.3 % (38.7-73.9); Platelet Count 252 T/CUMM (130-400); Red Cell Distribution Width 17.1 % (9.3-17.3); White Blood Count 11.7 T/CUMM (4-12)
[2022-05-25] MEDS: ALBUTEROL 2 MG TABLET PO SCH (11:37)
[2022-05-25] MEDS: ACETAMINOPHEN 325 MG TABLET PO SCH ×2 (11:52)
[2022-05-25] MEDS: amLODIPine 2.5 MG TABLET PO SCH (11:53)
[2022-05-25 12:14] VITALS: BP 151/69
== END 2022-05-25 13:41 | disposition home or self-care (01) | DRG 140 ==
LOC: N.ED 10:11 → SUATTDRO 12:44 → N.EDINP 12:44 → N.3E 14:44
PROVIDERS: ADMIT Internal Medicine; ATTEND Hospitalist